=== PATIENT | male | born 1960 | race Caucasian/White ===

== ENCOUNTER 2023-01-16 17:38 | Inpatient (IN) | payer MEDICARE, SELFPAY ==
[~2023-01-16 17:38] MED LIST: Iopamidol 370 76% 100 ML VIAL ONE
[2023-01-16 18:38] LABS: #Eosinphils 0.1 10x3/uL (0.0-0.5); #Monocytes 0.9 10x3/uL (0.0-1.1); #Neutrophils 5.8 10x3/uL (1.5-8.4); %Basophils 0.1 % (0.0-2.0); %Eosinophils 0.9 % (0.0-6.0); %Lymphocytes 15.8 % (18.0-47.0); %Monocytes 10.8 % (0.0-10.0); %Neutrophils 72.3 % (40.0-75.0); Hemoglobin 11.9 g/dL (13.5-17.5); Mean Corpuscular HGB CONC 30.7 g/dL (32.0-36.0); Mean Corpuscular Hemoglobin 23.2 pg (27.0-33.0); Mean Corpuscular Volume 75.4 fl (81.2-95.1); Mean Platelet Volume 9.9 fl (7.4-10.4); Platelet Count 221 10x3/uL (150-450); RBC Distribution Width 17.2 % (11.5-14.5); Red Blood Cell (RBC) Count 5.13 10x6/uL (4.32-5.72); White Blood Cell (WBC) Count 8.1 10x3/uL (3.5-10.5)
[2023-01-16 18:52] LABS: ALT (SGPT) 38 U/L (8-55); AST (SGOT) 29 U/L (5-34); Albumin 3.7 g/dL (3.5-5.0); Alkaline Phosphatase 74 U/L (40-110); Anion Gap 16 mmol/L (10-20); BUN (Urea Nitrogen) 26 mg/dL (8.4-25.7); Bilirubin, Total 0.3 mg/dL (0.2-1.2); Calc. Creatinine Clearance 0 mL/min (70-130); Calcium 8.4 mg/dL (7.8-10.44); Carbon Dioxide 22 mmol/L (22-29); Chloride 109 mmol/L (98-107); Estimated GFR 69; Globulin 2.1 g/dL (2.4-3.5); Glucose 201 mg/dL (70-105); Potassium 3.6 mmol/L (3.5-5.1); Protein, Total 5.8 g/dL (6.0-8.3); Sodium 143 mmol/L (136-145)
[2023-01-16] MEDS ORDERED: Dextrose 5% in Water 1,000 ML IV PRN (21:37)
[2023-01-16] MEDS ORDERED: Dextrose 50% Abboject 50 ML SYRINGE SLOW IVP PRN (21:37)
[2023-01-16] MEDS ORDERED: Guaifenesin DM 100-10/5 ML UDCUP PO PRN (21:38)
[2023-01-16] MEDS ORDERED: Calcium Carbonate 500 MG ChewTAB PO PRN (21:38)
[2023-01-16] MEDS ORDERED: Senokot S 8.6-50 MG TAB PO PRN (21:38)
[2023-01-16] MEDS ORDERED: Ondansetron PF 4 MG/2 ML Vial IVP PRN (21:38)
[2023-01-16] MEDS ORDERED: Acetaminophen 325 MG TAB PO PRN (21:38)
[2023-01-16] MEDS ORDERED: Ipratropium/Albuterol 3 ML NEB NEB PRN (21:41)
[2023-01-16] MEDS ORDERED: Dexamethasone 10 MG/ML VIAL ONE (21:46)
[2023-01-16 21:50] LABS: Lactic Acid 1.9 mmol/L (0.5-2.2)
[2023-01-16 22:22] LABS: SARS-CoV-2 NAA Rapid Test DETECTED (NotDetected)
[2023-01-16] MEDS ORDERED: cefTRIAXone\\ROCEPHIN 1 GM in Sodium Chloride 0.9% 100 ML IVPB SCH (22:30)
[2023-01-16] MEDS ORDERED: Azithromycin 500 MG in Sodium Chloride 0.9% 250 ML 250 ML IVPB SCH (22:30)
[2023-01-16 23:55] VITALS: BMI 39.2
[2023-01-16] MEDS ORDERED: Ipratropium/Albuterol 3 ML NEB NEB SCH (23:59)
[2023-01-17] MEDS ORDERED: Ventolin HFA Inhaler 60 PUFF INHALER INH SCH (00:15)
[2023-01-17] MEDS: cefTRIAXone\\ROCEPHIN 1 GM in Sodium Chloride 0.9% 100 ML IVPB SCH (00:41)
[2023-01-17] MEDS: Azithromycin 500 MG in Sodium Chloride 0.9% 250 ML 250 ML IVPB SCH (00:42)
[2023-01-17 00:43] LABS: Legionella Urinary Ag Negative (Negative)
[2023-01-17 00:44] LABS: Strep pneumo Urine Ag NEGATIVE (NEGATIVE)
[2023-01-17 05:36] LABS: #Monocytes 0.1 10x3/uL (0.0-1.1); #Neutrophils 5.8 10x3/uL (1.5-8.4); %Monocytes 1.4 % (0.0-10.0); %Neutrophils 91.1 % (40.0-75.0); Hemoglobin 11.9 g/dL (13.5-17.5); Mean Corpuscular HGB CONC 30.4 g/dL (32.0-36.0); Mean Corpuscular Hemoglobin 23.2 pg (27.0-33.0); Mean Corpuscular Volume 76.4 fl (81.2-95.1); Mean Platelet Volume 9.6 fl (7.4-10.4); Platelet Count 227 10x3/uL (150-450); RBC Distribution Width 17.1 % (11.5-14.5); Red Blood Cell (RBC) Count 5.12 10x6/uL (4.32-5.72); White Blood Cell (WBC) Count 6.3 10x3/uL (3.5-10.5)
[2023-01-17 05:37] LABS: Anion Gap 15 mmol/L (10-20); BUN (Urea Nitrogen) 29 mg/dL (8.4-25.7); CRP (Inflammatory) Less than 0.50 mg/dL (= or < 0.5); Calc. Creatinine Clearance 137 mL/min (70-130); Calcium 9.1 mg/dL (7.8-10.44); Carbon Dioxide 23 mmol/L (22-29); Chloride 107 mmol/L (98-107); Estimated GFR 78; Glucose 261 mg/dL (70-105); Potassium 4.4 mmol/L (3.5-5.1); Sodium 141 mmol/L (136-145)
[2023-01-17] MEDS: HumaLOG 300 UNITS/3 ML VIAL SC PRN ×3 (06:29→17:31)
[2023-01-17] MEDS: Mometasone/Formoterol 200/5 60 PUFF INH SCH ×2 (08:16→20:42)
[2023-01-17] MEDS: Ventolin HFA Inhaler 60 PUFF INHALER INH PRN ×2 (08:17→20:40)
[2023-01-17] MEDS ORDERED: Zinc Gluconate 50 MG TAB PO SCH (09:00)
[2023-01-17] MEDS: Benzonatate 100 MG CAP PO SCH ×3 (09:20→21:50)
[2023-01-17] MEDS: Aspirin 81 mg Enteric Coated Tablet PO SCH (09:20)
[2023-01-17] MEDS: Lisinopril 5 MG TAB PO SCH (09:20)
[2023-01-17] MEDS: Lantus 1000 UNITS/10 ML VIAL SC SCH (09:21)
[2023-01-17] MEDS: predniSONE 20 MG TAB PO SCH (09:21)
[2023-01-17] MEDS: Zinc Sulfate 220 MG CAP PO SCH (10:23)
[2023-01-17] MEDS: Atorvastatin Calcium 10 MG TAB PO SCH (21:50)
[2023-01-18] MEDS ORDERED: traZODone HCl 50 MG TAB PO SCH (00:30)
[2023-01-18] MEDS: Azithromycin 500 MG in Sodium Chloride 0.9% 250 ML 250 ML IVPB SCH (01:20)
[2023-01-18] MEDS: cefTRIAXone\\ROCEPHIN 1 GM in Sodium Chloride 0.9% 100 ML IVPB SCH (01:52)
[2023-01-18] MEDS: Mometasone/Formoterol 200/5 60 PUFF INH SCH ×2 (07:58→20:20)
[2023-01-18] MEDS: Lantus 1000 UNITS/10 ML VIAL SC SCH (08:53)
[2023-01-18] MEDS: Zinc Sulfate 220 MG CAP PO SCH (08:54)
[2023-01-18] MEDS: Lisinopril 5 MG TAB PO SCH (08:54)
[2023-01-18] MEDS: Benzonatate 100 MG CAP PO SCH ×3 (08:54→20:14)
[2023-01-18] MEDS: Aspirin 81 mg Enteric Coated Tablet PO SCH (08:54)
[2023-01-18] MEDS: predniSONE 20 MG TAB PO SCH (08:54)
[2023-01-18] MEDS: HumaLOG 300 UNITS/3 ML VIAL SC PRN ×2 (12:12→16:51)
[2023-01-18] MEDS: HYDROcodone/Acetaminophen 10/325 mg Tablet PO PRN (16:51)
[2023-01-18] MEDS: Atorvastatin Calcium 10 MG TAB PO SCH (20:14)
[2023-01-18] MEDS: traZODone HCl 50 MG TAB PO SCH (20:14)
[2023-01-18] MEDS: Ventolin HFA Inhaler 60 PUFF INHALER INH PRN (20:15)
[2023-01-19] MEDS: cefTRIAXone\\ROCEPHIN 1 GM in Sodium Chloride 0.9% 100 ML IVPB SCH ×2 (01:30→21:32)
[2023-01-19] MEDS: Azithromycin 500 MG in Sodium Chloride 0.9% 250 ML 250 ML IVPB SCH ×2 (02:31→21:42)
[2023-01-19] MEDS: Mometasone/Formoterol 200/5 60 PUFF INH SCH ×2 (07:00→19:58)
[2023-01-19] MEDS: Benzonatate 100 MG CAP PO SCH ×4 (08:45→21:20)
[2023-01-19] MEDS: Aspirin 81 mg Enteric Coated Tablet PO SCH ×2 (08:45→10:50)
[2023-01-19] MEDS: Lantus 1000 UNITS/10 ML VIAL SC SCH ×2 (08:46→10:50)
[2023-01-19] MEDS: Zinc Sulfate 220 MG CAP PO SCH ×2 (08:46→10:51)
[2023-01-19] MEDS: Lisinopril 5 MG TAB PO SCH ×2 (08:46→10:50)
[2023-01-19] MEDS: HYDROcodone/Acetaminophen 10/325 mg Tablet PO PRN ×3 (10:51→21:34)
[2023-01-19] MEDS: HumaLOG 300 UNITS/3 ML VIAL SC PRN ×3 (11:58→21:21)
[2023-01-19] MEDS: Ventolin HFA Inhaler 60 PUFF INHALER INH PRN (20:00)
[2023-01-19] MEDS: traZODone HCl 50 MG TAB PO SCH (21:20)
[2023-01-19] MEDS: Atorvastatin Calcium 10 MG TAB PO SCH (21:31)
[2023-01-20] MEDS: Mometasone/Formoterol 200/5 60 PUFF INH SCH ×2 (09:21→20:42)
[2023-01-20] MEDS: Lantus 1000 UNITS/10 ML VIAL SC SCH (11:05)
[2023-01-20] MEDS: Aspirin 81 mg Enteric Coated Tablet PO SCH (11:05)
[2023-01-20] MEDS: Benzonatate 100 MG CAP PO SCH ×4 (11:05→22:12)
[2023-01-20] MEDS: Lisinopril 5 MG TAB PO SCH (11:05)
[2023-01-20] MEDS: Zinc Sulfate 220 MG CAP PO SCH (11:05)
[2023-01-20] MEDS: HYDROcodone/Acetaminophen 10/325 mg Tablet PO PRN ×2 (12:48→22:29)
[2023-01-20] MEDS ORDERED: Sodium Chloride 0.9% 100 ML ONE (20:13)
[2023-01-20] MEDS: traZODone HCl 50 MG TAB PO SCH (20:25)
[2023-01-20] MEDS: Atorvastatin Calcium 10 MG TAB PO SCH ×2 (20:26→22:12)
[2023-01-20] MEDS: Miconazole 2% Cream 30 GM TUBE TOP SCH ×2 (20:29→22:57)
[2023-01-20] MEDS: cefTRIAXone\\ROCEPHIN 1 GM in Sodium Chloride 0.9% 100 ML IVPB SCH ×2 (20:30→22:13)
[2023-01-20] MEDS: Azithromycin 500 MG in Sodium Chloride 0.9% 250 ML 250 ML IVPB SCH (22:14)
[2023-01-20] MEDS: HumaLOG 300 UNITS/3 ML VIAL SC PRN (22:14)
[2023-01-21] MEDS: traZODone HCl 50 MG TAB PO SCH (00:39)
[2023-01-21] MEDS: Mometasone/Formoterol 200/5 60 PUFF INH SCH (06:34)
[2023-01-21] MEDS: HYDROcodone/Acetaminophen 10/325 mg Tablet PO PRN (10:01)
[2023-01-21] MEDS: Aspirin 81 mg Enteric Coated Tablet PO SCH (10:01)
[2023-01-21] MEDS: Miconazole 2% Cream 30 GM TUBE TOP SCH (10:02)
[2023-01-21] MEDS: Lisinopril 5 MG TAB PO SCH (10:02)
[2023-01-21] MEDS: Benzonatate 100 MG CAP PO SCH (10:02)
[2023-01-21] MEDS: Zinc Sulfate 220 MG CAP PO SCH (10:03)
[2023-01-21] MEDS: Lantus 1000 UNITS/10 ML VIAL SC SCH (10:03)
[2023-01-21] MEDS ORDERED: Nystatin Powder 15 GM BOT TOP PRN (10:07)
[2023-01-21] MEDS: HumaLOG 300 UNITS/3 ML VIAL SC PRN (10:20)
[2023-01-21 10:33] VITALS: TEMP 97.9
[2023-01-21 12:52] VITALS: BP 155/64
[2023-01-21] MEDS ORDERED: Atorvastatin Calcium 40 MG TAB PO SCH (21:00)
== END 2023-01-21 14:31 | DRG 178 ==
LOC: CSHERS 17:38 → CSHTELE 22:57
PROVIDERS: ADMIT Student in an Organized Health Care Education/Training Program; ATTEND Family Medicine
DX: U07.1 COVID-19 (principal); I69.351 Hemiplegia and hemiparesis following cerebral infarction affecting right dominant side; M19.90 Unspecified osteoarthritis, unspecified site; I10 Essential (primary) hypertension; E11.9 Type 2 diabetes mellitus without complications; E78.5 Hyperlipidemia, unspecified; R53.81 Other malaise; E66.01 Morbid (severe) obesity due to excess calories; D50.9 Iron deficiency anemia, unspecified; Z68.39 Body mass index [BMI] 39.0-39.9, adult; R09.02 Hypoxemia; Z79.899 Other long term (current) drug therapy; Z87.891 Personal history of nicotine dependence; Z90.49 Acquired absence of other specified parts of digestive tract; Z98.890 Other specified postprocedural states; Z82.49 Family history of ischemic heart disease and other diseases of the circulatory system
CPT/HCPCS: 36415; 36416; 71045; 71275; 80048; 80053; 83605; 83880; 84484; 85025; 85379; 86140; 87449; 87899; 93005; 93306; 93970; 94664; 94760; 96372; 96374; 97139; J0456; J0696; J1100; J1650; J1815; J3490; J7050; J7512; Q9967